=== PATIENT | female | born 1980 | race Caucasian/White ===

== ENCOUNTER 2025-05-06 14:08 | Emergency (ER) | payer SELFPAY ==
[2025-05-06 14:12] VITALS: BP 99/65
[2025-05-06 14:35] LABS: Hematocrit 41.6 % (37.0-47.0); Hemoglobin 13.7 g/dL (12.0-16.0); Mean Corp Hgb Conc. 32.9 g/dL (33.0-37.0); Mean Corpuscular Volume 83.2 fL (81.0-99.0); Nucleated Red Blood Cells % 0 %; Platelet Count 263 10^3/uL (130-400); Red Cell Dist. Width 14.3 % (11.5-14.5)
[2025-05-06 14:52] LABS: HCG, Serum Qualitative Screen Negative
[2025-05-06 14:59] LABS: ALT (SGPT) 20 U/L (0-35); AST (SGOT) 32 U/L (14-36); Albumin 4.2 g/dl (3.5-5.0); Alkaline Phosphatase 53 U/L (38-126); Blood Urea Nitrogen 12 mg/dl (7-17); Calcium 9.0 mg/dl (8.4-10.2); Carbon Dioxide 22 mmol/L (22-30); Chloride 107 mmol/L (98-107); Glucose 144 mg/dl (70-99); Potassium 4.6 mmol/L (3.5-5.1); Sodium 135 mmol/L (135-145); Total Protein 6.8 g/dl (6.3-8.2); eGFR > 60.00
[2025-05-06 17:47] VITALS: BMI 20.6
[2025-05-06 18:22] VITALS: BP 131/85
[2025-05-06 18:43] LABS: Urine Character Cloudy (Clear)
--- NOTE | 2025-05-06 18:45 | ED.GENMED ---
History of Present Illness
General
Chief Complaint: Abdominal Pain
Time Seen by Provider: 05/06/25 16:50
History of Present Illness
History of Present Illness:
45-year-old female without significant past medical history presenting to the emergency department for lower abdominal pain. Patient notes that symptoms started today with some associated nausea, no vomiting. Reports that she finished her
menstrual cycle about a week ago, however again started bleeding today. Reports that she typically has normal menstrual cycles, however sometimes they are very heavy. Denies any urinary complaints. Denies any abnormal discharge. Reports history
of hernia repair in the past on the left side. Subjective fevers and chills. Has been having some sinus discomfort and right ear discomfort. Reports possible sick contact at work. Denies additional acute medical complaints
Phy Exam
Physical Exam
Physical Exam:
General: Well-appearing, no clinical signs of dehydration, nontoxic and in no acute distress
HEENT: protecting airway
Neck: appears supple
CV: Normal heart rate, regular rhythm
Resp: No accessory muscle use, no increased work of breathing, lungs clear to auscultation bilaterally
Abd: Soft and non-distended, generalized tenderness to the lower abdomen including the suprapubic region, left lower quadrant, right lower quadrant
Extremities: No deformities, no swelling
Neuro: alert, no focal neurologic deficit
: deferred
Rectal: deferred
Psych: Normal affect
Skin: Intact
Course
Orders/Labs/Results
Orders:
Orders
05/06/25 14:18
Test Result ONCE
05/06/25 14:24
CMP [Comprehensive Metabolic Panel] Urgent
Complete Blood Count/With Diff Urgent
HCG, Serum Qualitative Screen Urgent
Comment: Notify provider if positive test present
05/06/25 17:28
0.9% Sodium Chloride 1000 ml [Nss] 1,000 ml IV BOLUS
Ketorolac [Toradol] 15 mg IV NOW STA
05/06/25 17:29
CT Abd/pelvis W Iv Cont Urgent
Comment:
Reason For Exam: generalized lower abd pain
05/06/25 18:24
COVID-19 Antigen Urgent
Source: Nasal Swab
Urinalysis Reflex To Culture Urgent
Date Specimen was Collected: 05/06/25
Time Specimen was Collected: 17:36
Urine Microscopic Reflex Cult Urgent
Influenza A+B Rapid Molecular Urgent
RENATE Source: Nasal Swab
Specimen Description:
05/06/25 18:33
US Pelvis W Transvag Combined Urgent
Comment:
Reason For Exam: pelvic pain and bleeding
05/06/25 20:15
Amoxicillin 875 mg/Clav 125 mg [Augmentin 875 mg/125 mg] 1 tablet PO NOW STA
Abnormal Lab Results
05/06/25 05/06/25
14:24 18:24
WBC 17.3 H 10^3/uL
(4.8-10.8)
MCHC 32.9 L g/dL
(33.0-37.0)
Abs Immat Gran (auto) 0.1 H 10^3/uL
(0-0.05)
Absolute Neuts (auto) 15.6 H 10^3/uL
(1.4-6.5)
Absolute Lymphs (auto) 0.8 L 10^3/uL
(1.2-3.4)
Absolute Monos (auto) 0.7 H 10^3/uL
(0.1-0.6)
Immature Gran % 0.6 H %
(0-0.5)
Neutrophils % 90.0 H %
(42.2-75.2)
Lymphocytes % 4.8 L %
(20.5-51.1)
Glucose 144 H mg/dl
(70-99)
Ur Occult Blood Reflex 4+ A
(Negative)
Urine RBC 30-40 A /HPF
(0-2)
Urine Bacteria (Reflex) Few A
(Negative)
Urine Glucose 1+ A
(Negative)
Urine Albumin (Reflex) 2+ A
(Neg - Trace)
05/06/25 14:24
05/06/25 14:24
Vital Signs
Initial and Last Documented VS:
Initial Vital Signs
Temp Pulse Resp BP Pulse Ox
97.6 F 86 18 99/65 98
05/06/25 14:12 05/06/25 14:12 05/06/25 14:12 05/06/25 14:12 05/06/25 14:12
Last Documented Vital Signs
Temp Pulse Resp BP Pulse Ox
98.6 F 86 20 131/85 100
05/06/25 18:22 05/06/25 18:22 05/06/25 18:22 05/06/25 18:22 05/06/25 18:47
MDM/Problems Addressed
MDM/Problems Addressed:
45-year-old female presenting for lower abdominal discomfort. Vital signs on arrival are normal.
On exam, patient is resting comfortably, no acute distress. On abdominal exam, generalized tenderness to the lower abdomen without rebound or guarding. Patient afebrile, nontoxic. However labs obtained prior to my assessment, leukocytosis. For
this reason concern for possible intra-abdominal infection or process. Pelvic versus intra-abdominal process is a consideration. Given diffuse nature of pain, will start with a CT abdomen and pelvis for further assessment. Will start patient on
IV fluids and Toradol for pain.
18:30 - CT of the abdomen pelvis shows some complex fluid in the uterus, possibly blood, which does track with report of menstrual cycle. Possible dysfunctional uterine bleeding. Recommendation for direct visualization with pelvic ultrasound.
Will obtain.
20:15 - Ultrasound without acute significant pathology. Patient is tolerating p.o., remains stable did check patient is TMs bilaterally, no sign of infection. Patient notes some persistent sinus discomfort. Possible source of underlying
infection. Will start on Augmentin, otherwise feel stable for discharge with outpatient supportive therapy. Return precautions discussed
*Pulse Oximetry
SaO2: 100
Oxygen Mode of Delivery: Room air
Patient hypoxic: no
*Critical Care Note
Total Time (30-74mins, 75-104mins- exclusive of procedures): Not Applicable
ED Attending Note
-
Portions of this chart may have been created with voice recognition software.� Occasional wrong word or��sound alike� substitutions may have occurred due to the inherent limitations of voice recognition software.
Discharge Plan
Departure
Prescriptions:
No Action
No Current Medications
0
Referrals:
NONE,* [Family Provider, Internal Medicine]
Interventions
Interventions:
*Risk Screen - Suicide Last Done: 05/06/25 14:12
*General Assessment Last Done: 05/06/25 18:22
*Neglect/Abuse Screening Last Done: 05/06/25 14:17
*ED- Fall Risk Assessment Last Done: 05/06/25 18:22
*ED COVID-19 Vaccine History Last Done: 05/06/25 18:22
CD-Jauiud-Ulrppcyejj Assessment Last Done: 05/06/25 18:22
Discharge Date and Time
Print Language: ROMANIAN
[2025-05-06 18:51] LABS: COVID-19 Antigen Negative (Negative)
[2025-05-06 19:07] LABS: Urine Red Blood Cell 30-40 /HPF (0-2); Urine White Cell 0-2 /HPF (0-5)
[2025-05-06] MEDS: AUGMENTIN 875 MG/125 MG 1 TABLET PO (20:21)
== END 2025-05-06 20:27 | disposition home or self-care (01) ==
LOC: EMR 14:08
PROVIDERS: EMERGENCY PHYSICIAN Student in an Organized Health Care Education/Training Program
DX: N93.8 Other specified abnormal uterine and vaginal bleeding (principal); J32.9 Chronic sinusitis, unspecified
CPT/HCPCS: 99284; 74177; 76830; 76856; 80053; 81003; 81015; 84703; 85025; 87502; 87811; Q9967